=== PATIENT | male | born 1985 | race Caucasian/White ===

== ENCOUNTER 2017-02-06 14:15 | Emergency (ER) | payer SELFPAY | END 2017-02-06 17:36 | disposition home or self-care (01) | LOC: D.ER 14:15 | DX: J44.1 Chronic obstructive pulmonary disease with (acute) exacerbation (principal); E11.9 Type 2 diabetes mellitus without complications; I10 Essential (primary) hypertension; M06.9 Rheumatoid arthritis, unspecified; R06.2 Wheezing; R06.00 Dyspnea, unspecified; R05 Cough; F17.200 Nicotine dependence, unspecified, uncomplicated ==

== ENCOUNTER 2017-04-05 07:38 | Emergency (ER) | payer MEDICAID | END 2017-04-05 08:16 | disposition home or self-care (01) | LOC: D.ER 07:38 | DX: R11.10 Vomiting, unspecified (principal); R10.9 Unspecified abdominal pain; J44.9 Chronic obstructive pulmonary disease, unspecified; E11.9 Type 2 diabetes mellitus without complications; I10 Essential (primary) hypertension ==

== ENCOUNTER 2017-05-21 03:35 | Emergency (ER) | payer MEDICAID | END 2017-05-21 04:28 | disposition home or self-care (01) | LOC: D.ER 03:35 | DX: F41.9 Anxiety disorder, unspecified (principal); J44.9 Chronic obstructive pulmonary disease, unspecified; I10 Essential (primary) hypertension ==

== ENCOUNTER 2017-08-17 10:49 | Emergency (ER) | payer MEDICAID ==
[2017-08-17 14:20] LABS: BASOPHILS 0.1 % (0-2); EOSINOPHILS 0.7 % (0-7); HEMATOCRIT 45.2 % (42.0-54.0); HEMOGLOBIN 15.7 g/dL (13.5-17.5); IMMATURE GRANULOCYTES 0.2 % (0-5); LYMPHOCYTES 24.5 % (15-50); MCH 28.5 pg (26.0-34.0); MCHC 34.7 g/dL (31.0-37.0); MCV 82.2 fL (80.0-100.0); MEAN PLATELET VOLUME 10.3 fL (7.4-10.4); MONOCYTES 8.7 % (2-11); NEUTROPHILS 65.8 % (40-80); PLATELET COUNT 185 10x3/uL (130-400); RDW 12.5 % (11.5-14.5); WBC 8.7 10x3/uL (4.8-10.8)
[2017-08-17 14:38] LABS: ALBUMIN 4.2 g/dL (3.4-5.0); ALKALINE PHOSPHATASE 78 U/L (46-116); ALT (SGPT) 53 U/L (10-68); AMYLASE - SERUM 46 U/L (25-115); BILIRUBIN - TOTAL 0.31 mg/dL (0.2-1.3); CALC OSMOLALITY 281 mosm/kg (275-300); CALCIUM 9.5 mg/dL (8.5-10.1); CARBON DIOXIDE 29.3 mmol/L (21.0-32.0); CHLORIDE - SERUM 100 mmol/L (98-107); GLUCOSE 194 mg/dL (74-106); LIPASE 149 U/L (73-393); POTASSIUM - SERUM 4.3 mmol/L (3.5-5.1); PROTEIN - SERUM 7.8 g/dL (6.4-8.2); SODIUM 138 mmol/L (136-145); UREA NITROGEN 15 mg/dL (7-18); eGFR NON AFRICAN AMERICAN > 90 mL/min (90-120)
== END 2017-08-17 15:37 | disposition home or self-care (01) ==
LOC: D.ER 10:49
PROVIDERS: Nurse Practitioner Family
DX: J11.1 Influenza due to unidentified influenza virus with other respiratory manifestations (principal); R11.10 Vomiting, unspecified; J44.9 Chronic obstructive pulmonary disease, unspecified; E11.9 Type 2 diabetes mellitus without complications; I10 Essential (primary) hypertension

== ENCOUNTER 2017-10-19 03:29 | Emergency (ER) | payer MEDICAID ==
[2017-10-19 04:12] LABS: BASOPHILS 0.1 % (0-2); EOSINOPHILS 0.9 % (0-7); HEMATOCRIT 47.5 % (42.0-54.0); HEMOGLOBIN 16.6 g/dL (13.5-17.5); IMMATURE GRANULOCYTES 0.2 % (0-5); LYMPHOCYTES 4.9 % (15-50); MCH 28.6 pg (26.0-34.0); MCHC 34.9 g/dL (31.0-37.0); MCV 81.9 fL (80.0-100.0); MEAN PLATELET VOLUME 10.8 fL (7.4-10.4); MONOCYTES 5.7 % (2-11); NEUTROPHILS 88.2 % (40-80); PLATELET COUNT 154 10x3/uL (130-400); RDW 12.7 % (11.5-14.5)
[2017-10-19 04:33] LABS: APPEARANCE CLEAR (CLEAR); BILIRUBIN NEGATIVE (NEGATIVE); COLOR YELLOW (YELLOW); GLUCOSE 500 mg/dL (NEGATIVE); KETONE NEGATIVE (NEGATIVE); NITRITE NEGATIVE (NEGATIVE); PROTEIN NEGATIVE (NEGATIVE); SPECIFIC GRAVITY 1.015 (1.005-1.020); UROBILINOGEN NORMAL (NORMAL)
[2017-10-19 04:54] LABS: ALBUMIN 3.8 g/dL (3.4-5.0); ALKALINE PHOSPHATASE 57 U/L (46-116); ALT (SGPT) 39 U/L (10-68); AMYLASE - SERUM 39 U/L (25-115); BILIRUBIN - TOTAL 0.66 mg/dL (0.2-1.3); CALC OSMOLALITY 286 mosm/kg (275-300); CALCIUM 8.6 mg/dL (8.5-10.1); CARBON DIOXIDE 25.5 mmol/L (21.0-32.0); CHLORIDE - SERUM 100 mmol/L (98-107); LIPASE 122 U/L (73-393); POTASSIUM - SERUM 4.6 mmol/L (3.5-5.1); PROTEIN - SERUM 7.3 g/dL (6.4-8.2); SODIUM 137 mmol/L (136-145); UREA NITROGEN 20 mg/dL (7-18); eGFR NON AFRICAN AMERICAN > 90 mL/min (90-120)
[2017-10-19 05:02] LABS: GLUCOSE 285 mg/dL (74-106)
== END 2017-10-19 07:29 | disposition home or self-care (01) ==
LOC: D.ER 03:29
PROVIDERS: Emergency Medicine
DX: R11.10 Vomiting, unspecified (principal); J44.9 Chronic obstructive pulmonary disease, unspecified; E11.9 Type 2 diabetes mellitus without complications; I10 Essential (primary) hypertension; F17.200 Nicotine dependence, unspecified, uncomplicated

== ENCOUNTER 2017-10-21 11:44 | Emergency (ER) | payer MEDICAID ==
[2017-10-21 12:16] LABS: BASOPHILS 0.1 % (0-2); EOSINOPHILS 0.2 % (0-7); HEMOGLOBIN 15.3 g/dL (13.5-17.5); IMMATURE GRANULOCYTES 0.3 % (0-5); LYMPHOCYTES 9.6 % (15-50); MCH 28.9 pg (26.0-34.0); MCHC 35.6 g/dL (31.0-37.0); MCV 81.3 fL (80.0-100.0); MEAN PLATELET VOLUME 10.4 fL (7.4-10.4); MONOCYTES 10.7 % (2-11); NEUTROPHILS 79.1 % (40-80); PLATELET COUNT 164 10x3/uL (130-400); RBC 5.29 10x6/uL (4.20-6.10); RDW 12.6 % (11.5-14.5); WBC 13.1 10x3/uL (4.8-10.8)
[2017-10-21 12:29] LABS: ALKALINE PHOSPHATASE 68 U/L (46-116); ALT (SGPT) 44 U/L (10-68); BILIRUBIN - TOTAL 0.57 mg/dL (0.2-1.3); CALC OSMOLALITY 279 mosm/kg (275-300); CALCIUM 8.9 mg/dL (8.5-10.1); CARBON DIOXIDE 24.1 mmol/L (21.0-32.0); CHLORIDE - SERUM 99 mmol/L (98-107); CREATININE - SERUM 1.1 mg/dL (0.6-1.3); GLUCOSE 268 mg/dL (74-106); POTASSIUM - SERUM 3.6 mmol/L (3.5-5.1); PROTEIN - SERUM 7.6 g/dL (6.4-8.2); SODIUM 135 mmol/L (136-145); UREA NITROGEN 16 mg/dL (7-18); eGFR NON AFRICAN AMERICAN 83 mL/min (90-120)
[2017-10-21 12:53] LABS: LIPASE 144 U/L (73-393)
[2017-10-21 12:58] LABS: CKMB 8.4 U/L (0.0-3.6); CREATINE KINASE 872 UL (21-232)
== END 2017-10-21 15:35 | disposition home or self-care (01) ==
LOC: D.ER 11:44
PROVIDERS: Family Medicine
DX: T14.8XXA Other injury of unspecified body region, initial encounter (principal); X58.XXXA Exposure to other specified factors, initial encounter; Y93.89 Activity, other specified; Y92.89 Other specified places as the place of occurrence of the external cause; J44.9 Chronic obstructive pulmonary disease, unspecified; I10 Essential (primary) hypertension

== ENCOUNTER 2017-12-20 15:18 | Emergency (ER) | payer MEDICAID ==
[~2017-12-20] VITALS: Ht 185.4 cm; Wt 138.6 kg
[2017-12-20 15:28] VITALS: Ht 185.4 cm; Wt 138.6 kg
[2017-12-20] MEDS ORDERED: OMEPRAZOLE20 M1 PO ×2 (15:30→16:20)
[2017-12-20 16:52] VITALS: BP 136/86
== END 2017-12-20 16:43 | disposition home or self-care (01) ==
LOC: D.ER 15:18
DX: K21.9 Gastro-esophageal reflux disease without esophagitis (principal); R11.10 Vomiting, unspecified

== ENCOUNTER 2017-12-30 12:14 | Emergency (ER) | payer MEDICAID ==
[~2017-12-30] VITALS: Ht 185.4 cm; Wt 136.8 kg
[~2017-12-30 12:14] MED LIST: OMEPRAZOLE20 M1 PO
[2017-12-30 12:18] VITALS: Ht 185.4 cm; Wt 136.8 kg
[2017-12-30] MEDS ORDERED: AMOXICILLIN500 M1 PO (13:04)
[2017-12-30 13:17] VITALS: BP 143/88
== END 2017-12-30 13:26 | disposition home or self-care (01) ==
LOC: D.ER 12:14
DX: J06.9 Acute upper respiratory infection, unspecified (principal)

== ENCOUNTER 2018-04-13 17:13 | Emergency (ER) | payer MEDICAID ==
[~2018-04-13] VITALS: Ht 185.4 cm; Wt 128.6 kg
[~2018-04-13 17:13] MED LIST changes: +AMOXICILLIN500 M1 PO
[2018-04-13 17:29] VITALS: Ht 185.4 cm; Wt 128.6 kg
[2018-04-13] MEDS ORDERED: IMODIUM2 MG PO (19:00)
[2018-04-13] MEDS ORDERED: ZPAK PO (19:00)
[2018-04-13 19:18] VITALS: BP 152/89
== END 2018-04-13 19:19 | disposition home or self-care (01) ==
LOC: D.ER 17:13
DX: J06.9 Acute upper respiratory infection, unspecified (principal); R19.7 Diarrhea, unspecified; F17.200 Nicotine dependence, unspecified, uncomplicated

== ENCOUNTER 2018-08-16 10:50 | Emergency (ER) | payer MEDICAID ==
[~2018-08-16] VITALS: Ht 185.4 cm; Wt 129.5 kg
[~2018-08-16 10:50] MED LIST changes: +IMODIUM2 MG PO; +ZPAK PO
[2018-08-16 10:53] VITALS: Ht 185.4 cm; Wt 129.5 kg
[2018-08-16] MEDS ORDERED: ZPAK PO (11:20)
[2018-08-16] MEDS ORDERED: TESSALON PERLE100 MG PO (11:20)
[2018-08-16] MEDS ORDERED: AMOXICILLIN875 MG PO (11:23)
[2018-08-16 12:02] VITALS: BP 135/76
== END 2018-08-16 12:03 | disposition home or self-care (01) ==
LOC: D.ER 10:50
DX: J01.90 Acute sinusitis, unspecified (principal); R09.89 Other specified symptoms and signs involving the circulatory and respiratory systems; M79.18 Myalgia, other site

== ENCOUNTER 2020-09-18 10:52 | Emergency (ER) | payer MEDICAID ==
[~2020-09-18] VITALS: Ht 185.4 cm; Wt 133.2 kg
[~2020-09-18 10:52] MED LIST changes: +AMOXICILLIN875 MG PO; +TESSALON PERLE100 MG PO
[2020-09-18 10:56] VITALS: Ht 185.4 cm; Wt 133.2 kg
[2020-09-18 11:14] LABS: BASOPHILS 0.3 % (0-2); HEMATOCRIT 43.5 % (42.0-54.0); HEMOGLOBIN 15.2 g/dL (13.5-17.5); IMMATURE GRANULOCYTES 0.3 % (0-5); LYMPHOCYTE ABS# 1.78 10x3/uL (1.32-3.57); LYMPHOCYTES 23.5 % (15-50); MCH 28.3 pg (26.0-34.0); MCHC 34.9 g/dL (31.0-37.0); MCV 80.9 fL (80.0-100.0); MEAN PLATELET VOLUME 9.9 fL (7.4-10.4); MONOCYTES 8.3 % (2-11); NEUTROPHIL ABS# 4.98 10x3/uL (1.78-5.38); NEUTROPHILS 65.6 % (40-80); PLATELET COUNT 173 10x3/uL (130-400); RBC 5.38 10x6/uL (4.20-6.10); RDW 12.4 % (11.5-14.5); WBC 7.6 10x3/uL (4.8-10.8)
[2020-09-18 11:31] LABS: CALC OSMOLALITY 281 mosm/kg (275-300); CALCIUM 8.9 mg/dL (8.5-10.1); CARBON DIOXIDE 27.7 mmol/L (21.0-32.0); CHLORIDE - SERUM 100 mmol/L (98-107); GLUCOSE 237 mg/dL (74-106); POTASSIUM - SERUM 3.9 mmol/L (3.5-5.1); SODIUM 136 mmol/L (136-145); UREA NITROGEN 17 mg/dL (7-18); eGFR NON AFRICAN AMERICAN > 90 mL/min (90-120)
[2020-09-18 11:36] LABS: ALBUMIN 4.1 g/dL (3.4-5.0); ALKALINE PHOSPHATASE 80 U/L (30-120); ALT (SGPT) 32 U/L (10-68); PROTEIN - SERUM 6.9 g/dL (6.4-8.2)
[2020-09-18 11:49] LABS: BILIRUBIN NEGATIVE (NEGATIVE); KETONE NEGATIVE (NEGATIVE); NITRITE NEGATIVE (NEGATIVE); UROBILINOGEN NORMAL mg/dL (< 2)
[2020-09-18] MEDS ORDERED: METFORMIN HCL500 M1 PO (12:04)
[2020-09-18] MEDS ORDERED: ZOFRAN ODT4 MG/UDTAB PO (12:04)
[2020-09-18 12:21] VITALS: BP 142/86
== END 2020-09-18 12:21 | disposition home or self-care (01) ==
LOC: D.ER 10:52
PROVIDERS: Family Medicine
DX: E11.65 Type 2 diabetes mellitus with hyperglycemia (principal); R11.0 Nausea; Z63.8 Other specified problems related to primary support group; J44.9 Chronic obstructive pulmonary disease, unspecified; Z72.0 Tobacco use

== ENCOUNTER 2020-10-24 11:14 | Emergency (ER) | payer MEDICAID ==
[~2020-10-24] VITALS: Ht 185.4 cm; Wt 136.4 kg
[~2020-10-24 11:14] MED LIST changes: +METFORMIN HCL500 M1 PO; +ZOFRAN ODT4 MG/UDTAB PO
[2020-10-24 11:18] VITALS: Ht 185.4 cm; Wt 136.4 kg
[2020-10-24] MEDS ORDERED: METHOCARBAMOL500 MG PO (12:19)
[2020-10-24] MEDS ORDERED: VOLTAREN75 MG PO (12:19)
[2020-10-24 12:41] VITALS: BP 142/89
== END 2020-10-24 12:42 | disposition home or self-care (01) ==
LOC: D.ER 11:14
DX: M54.32 Sciatica, left side (principal); M54.31 Sciatica, right side; E11.9 Type 2 diabetes mellitus without complications; J44.9 Chronic obstructive pulmonary disease, unspecified; I10 Essential (primary) hypertension; Z72.0 Tobacco use; Z79.84 Long term (current) use of oral hypoglycemic drugs